=== PATIENT | male | born 1985 | race Caucasian/White ===

== ENCOUNTER 2016-12-03 15:00 | Inpatient (IN) | payer OTHER ==
--- NOTE | ~2016-12-03 | PA ---
Unit #: [id number] #: [id number] Patient: HARMEET AWAD [id number] [facility] [address] [place] [address] [id number] MR#: [id number] NAME: HARMEET AWAD ROOM: P178 Age: 31 Sex: M Admission Date: 12/03/2016 : 1985 Date of Assessment: 12/04/2016 Attending Physician: Scooter Estrada M.D. Admitting Physician: Scooter Estrada M.D. Primary Care Physician: Dallas Garcia M.D. PSYCHIATRIC ASSESSMENT IDENTIFYING INFORMATION The patient is a 31-year-old white male admitted after had presented to this facility reporting need to "detox and complete a 28-day program" in order to regain custody of his 05-iqlxl-ufl daughter. CHIEF COMPLAINT "I need to complete the program." INFORMANT(S) Patient, reliability is fair. HISTORY OF PRESENT ILLNESS The patient is a 31-year-old white male with no prior history of treatment at this facility. He is admitted after he presented yesterday voluntarily reporting a need to seek detoxification and treatment related to his history of substance abuse. The patient reports that because of his substance abuse, his 11-smcts-rly child has been taken from his custody, and in order to regain custody of the child, he needs to "detox and complete a 28-day program." The patient was initially noted to be somewhat aggressive on admission to the [facility] Unit but is pleasant and cooperative today though he states that he has no intention of participating within the therapeutic milieu and states that he is here only to "detox and get out." The patient had reported some suicidal ideation at the time of his initial evaluation but today denied suicidal or homicidal ideation and denies any psychotic symptoms. He is apparently homeless at this time. PAST PSYCHIATRIC HISTORY The patient denies prior psychiatric or chemical dependence treatment. PAST MEDICAL HISTORY Noncontributory. MEDICATIONS None. ALLERGIES Penicillin. FAMILY HISTORY Noncontributory. SOCIAL HISTORY Unit #: [id number] #: [id number] Patient: HARMEET AWAD The patient reports abuse of multiple psychoactive substances including methamphetamine and cannabis most prominently, although he states he uses "just about everything." MENTAL STATUS EXAMINATION Examination at this time reveals the patient to a somewhat disheveled white male appearing stated age. He is in no apparent physical distress at the time of examination. He is awake, alert, and oriented in all spheres. His mood is euthymic, his affect congruent. Speech is generally well-coherent. There are no gross deficits in memory or cognition noted. Intelligence is judged to be in the average range based on fund of knowledge. The patient is generally cooperative during interview. He currently denies suicidal or homicidal ideation or psychotic features. Judgment and insight appear to be intact. ASSETS AND LIABILITIES The patient's assets to be assessed. Liabilities: Lack of resources, sociopathy. DIAGNOSTIC IMPRESSION 1. Methamphetamine use disorder. 2. Cannabis use disorder. 3. Antisocial personality disorder. TREATMENT PLAN The patient is today exhibiting no signs or symptoms of withdrawal and is requesting discharge with a wish to "go to a residential house." He is exhibiting no signs or symptoms of detox and at this point does not meet criteria for involuntary hospitalization. We will go ahead and discharge per his request. Dictated by... Scooter Estrada M.D. TUNDE/richa TD: 12/04/2016 13:32 JOB #: [id number] PSYCHIATRIC ASSESSMENT Page 1 of 1 X Scooter Estrada MD X PSYCHIATRIC ASSESSMENT
--- NOTE | ~2016-12-03 | HP ---
Unit #: [id number] #: [id number] Patient: HARMEET AWAD [id number] [place] [address] [id number] MR#: [id number] NAME: HARMEET AWAD ROOM: P178 Age: 31 Sex: M Admission Date: 12/03/2016 : 1985 Attending Physician: Scooter Estrada M.D. Admitting Physician: Scooter Estrada M.D. Primary Care Physician: Dallas Garcia M.D. HISTORY AND PHYSICAL HISTORY OF PRESENT ILLNESS Harmeet is a 31 year old admitted to [facility] because of his polysubstance abuse. PAST MEDICAL HISTORY 1. Asthma. 2. Cardiac valvular disease. He had been followed by (1) __ as a child. PAST SURGICAL HISTORY T and A. ALLERGIES Penicillin. SOCIAL HISTORY Smokes one pack per day. Denies alcohol. Admits to using marijuana on a daily basis, and occasionally abusing benzodiazepines, amphetamines, and opioids. FAMILY HISTORY Medically noncontributory. REVIEW OF SYSTEMS CONSTITUTIONAL: No fever or chills. HEENT: Denies any sore throat, ear pain or runny nose. CARDIOVASCULAR: Denies chest pain, irregular heart rhythm or palpitations. CHEST: Denies shortness of breath or cough. No hemoptysis. GASTROINTESTINAL: Denies nausea, vomiting, diarrhea or chronic constipation. ENDOCRINE: Denies history of increased thirst or urination. No recent significant weight loss or gain. GENITOURINARY: Denies dysuria, frequency, or hematuria. SKIN: Denies any rashes. HEMATOLOGIC: Denies history of increased bleeding or bruising. MUSCULOSKELETAL: Denies any hot, swollen joints. No generalized muscle pain. NEUROLOGIC: Denies problems with vision or speech. No frequent, severe headaches. No numbness, tingling or weakness in any extremities. Denies loss of bladder or bowel control. CURRENT MEDICATIONS 1. Desyrel 50 mg q.h.s. Unit #: [id number] #: [id number] Patient: HARMEET AWAD 2. Thorazine 50 mg q. 4 hours p.r.n. 3. Milk of Magnesia p.r.n. 4. Maalox p.r.n. 5. Tylenol p.r.n. 6. Nicotine patch 14 mg q. day. PHYSICAL EXAMINATION GENERAL: Alert, well nourished. No apparent distress. VITAL SIGNS: Blood pressure 122/84, heart rate 80, respirations 16, and temperature 98.6. WEIGHT: 168. HEIGHT: 6 feet 2 inches. SKIN: Warm and dry without rash. He has multiple small, round, open areas along his arms. There is no increased redness, swelling, heat, or pus noted in any of these areas. HEENT: Normocephalic. TMs not viewed. Oral and nasal passages clear. Conjunctivae clear. PERRLA. EOMs intact. NECK: Supple without lymphadenopathy or thyromegaly. HEART: Regular rate and rhythm without murmur. LUNGS: Clear. ABDOMEN: Soft, nontender. : Not done. EXTREMITIES: No evidence of cyanosis, clubbing or edema. Moves all without focal deficit. NEUROLOGICAL: Grossly within normal limits. Cranial Nerves: II: Visual perry are intact. III, IV AND : Extraocular movements are intact. Pupils are equal, round and reactive to light. V: Facial sensation is grossly normal. VII: Facial movements and expression are normal. VIII: Auditory acuity grossly intact. IX, X: Uvula is midline. Phonation is normal. XI: Patient shrugs shoulders and turns head normally. XII: Tongue protrudes in the midline. Sensory and Motor Function: Sensory and motor sensation is grossly normal. Motor: moves all extremities well. Coordination: Gait is normal. Deep Tendon Reflexes: Intact. IMPRESSION 1. Psychiatric admission. 2. Small round open areas on his arms, most likely areas where he picks when he is high. RECOMMENDATIONS PSYCHIATRIC: Per psychiatrist. MEDICAL: 1. I see no contraindication to participate in this facility's activities. 2. Keep the areas clean with soap and water. No further Rx at this time. MEDICAL PROGNOSIS Good. MEDICAL CONDITION Stable. Dictated by... Tanya Auguste P.A.-C. for Unit #: [id number] #: [id number] Patient: HARMEET AWAD Juan Vinson TD: 12/04/2016 07:32 JOB #: [id number] HISTORY AND PHYSICAL Page 1 of 1 X Tanya Auguste HISTORY AND PHYSICAL
--- NOTE | ~2016-12-03 | CO ---
Unit #: [id number] #: [id number] Patient: HARMEET AWAD [id number] [facility] [address] [place] [address] [id number] MR#: [id number] NAME: HARMEET AAWD ROOM: [facility] Age: 31 Sex: M Admission Date: 12/03/2016 : 1985 Attending Physician: Scooter Estrada M.D. Primary Care Physician: Dallas Garcia M.D. Consultation Date: 12/04/2016 CONSULTATION REPORT JOB NOTE: DICTATED FOR NOT DICTATED. ORDERING PROVIDER Dr. Estrada. REASON FOR CONSULTATION Rash and inhaler. SUBJECTIVE The patient reports that he is not asthmatic, that he does not use an inhaler, and does not need an inhaler. He reports that on his right arm, he has a few lesions they are not itchy or painful. He does not think that they are infected and they have been present for a few days. OBJECTIVE Lungs are clear to auscultation bilaterally. His right arm has three or four small, less than 5-mm crusty lesion without drainage or erythema. ASSESSMENT 1. Bug bite. 2. The patient denies asthma. PLAN To use Neosporin on lesions. Continue to monitor lung functions as necessary. Dictated by... Rogers Boucher/oracio TD: 12/05/2016 11:56 JOB #: [id number] Unit #: [id number] #: [id number] Patient: HARMEET AWAD CONSULTATION REPORT Page 1 of 1 X KVNG ROJO APRN X CONSULTATION REPORT
--- NOTE | ~2016-12-03 | DS ---
Unit #: [id number] #: [id number] Patient: HARMEET AWAD [id number] [facility] [address] [place] [address] [id number] MR#: [id number] NAME: HARMEET AWAD ROOM: [facility] Age: 31 Sex: M Admission Date: 12/03/2016 : 1985 Discharge Date: 12/04/2016 Attending Physician: Scooter Estrada M.D. Primary Care Physician: Dallas Garcia M.D. DISCHARGE SUMMARY REASON FOR ADMISSION The patient is a 31-year-old white male with a history of polysubstance dependence, admitted in hopes of regaining custody of his 09-fxtsu-ijv daughter. HOSPITAL COURSE The patient was admitted to the [facility] unit placed on suicide precautions. VTS was added given concerns about the patient's aggressive behavior, however, and as well as p.r.n. Thorazine. By 12/04/2016, the patient was calm, pleasant, and cooperative, and denied suicidal or homicidal ideation. He also reported this physician that he had no intention of attending any therapeutic activities or groups on the unit. Since he was here "just detox to get my daughter back," he exhibited no signs or symptoms of withdrawal. On 12/04/2016, requested discharge was ordered. FINAL DIAGNOSES Methamphetamine use disorder; cannabis use disorder; history of "heart valve problem;" antisocial personality traits versus disorder. DISPOSITION ON DISCHARGE No psychotropic or other medications were ordered at the time of discharge. FOLLOWUP Followup will take place through the auspices of community mental health resources. PROGNOSIS The patient's prognosis considered fair. Dictated by... Scooter Estrada M.D. CB/oracio TD: 12/04/2016 23:21 JOB #: [id number] Unit #: [id number] #: [id number] Patient: HARMEET AWAD DISCHARGE SUMMARY Page 1 of 1 X Scooter Estrada MD X DISCHARGE SUMMARY
[~2016-12-03 15:00] MED LIST: KROGER PHARMACY; NEURONTIN PO; SEROQUEL PO; TRAZODONE PO
== END 2016-12-04 12:25 | disposition home or self-care (01) | DRG 897 ==
LOC: P1E 15:14
PROC: HZ2ZZZZ Detoxification Services for Substance Abuse Treatment (ICD-10-PCS; principal; 2016-12-03)
DX: F15.10 Other stimulant abuse, uncomplicated (principal); F60.2 Antisocial personality disorder; F12.10 Cannabis abuse, uncomplicated; J45.909 Unspecified asthma, uncomplicated; F17.210 Nicotine dependence, cigarettes, uncomplicated